=== PATIENT | female | born 1975 | race Caucasian/White ===

== ENCOUNTER 2016-11-03 17:39 | Emergency (ER) | payer MEDICAID ==
[~2016-11-03] VITALS: Ht 160 cm; Wt 65.5 kg
[~2016-11-03 17:39] MED LIST: HYDR-906 PO; NAPR-260 PO
[2016-11-03 19:35] VITALS: Ht 160 cm; Wt 65.5 kg
[2016-11-03 21:47] LABS: URINE BLOOD (Dip) POC 1+ (NEGATIVE)
--- NOTE | 2016-11-03 21:51 | RADRPT ---
PROCEDURE: Pelvic ultrasound. CLINICAL INDICATION: Pelvic pain TECHNIQUE: Sullivan scale, color doppler, spectral doppler ultrasound of the pelvis was performed with transabdominal and transvaginal transducers. COMPARISON: Pelvic ultrasound 10/29/1959 FINDINGS: Uterus: Position: Anteverted. Small intramural fibroids are again identified in the fundal region dorsal aspect of the uterine bod y measuring up to 1.0 cm. These do not appear submucosal on the current examination. Normal appearance of the endometrium. Proliferative phase. Nabothian cysts are observed. Ovaries: Normal sized ovaries with preserved blood flow. No adnexal masses. Free fluid: None. Measurements: Endometrium: 0.6 cm Uterus: 9.6 x 6.1 x 4.9 cm Right ovary: 3.0 x 2.3 x 1.8 cm Left ovary: 2.4 x 1.5 x 1.9 cm IMPRESSION: Unchanged appearance of small uterine fibroids. Normal appearance the endometrium. RPTAT: AADD .Ventura Mancia MD, MD Date Time Electronically viewed and signed by .Ventura Mancia MD, on 11/03/2016 21:51 .B/
[2016-11-03] MEDS ORDERED: IBUP-1542 PO (22:05)
--- NOTE | 2016-11-03 22:10 | ERD ---
ER Documentation Chief Complaint Date/Time DATE: 11/03/16 TIME: 22:07 Chief Complaint pelvic pain x 1 month HPI Patient is a 41-year-old Lao-speaking female who presents to the ED with left-sided pelvic pain for 2 months. She states that she had vaginal bleeding on and off for the last month and a half. Her last normal menstrual period was 09/11/17. She states that she stopped bleeding 4 days ago but complains of pelvic pain. She was seen here 1 month ago for similar symptoms and was diagnosed with fibroids. She states that she did not go see a specialist for this reason and states "I didn't want to go" and is here for repeat ultrasound. Denies sexual activity. Denies abnormal vaginal discharge. Denies urinary symptoms. Denies fever or chills. Denies abdominal pain, nausea, vomiting or diarrhea. Denies chest pain, cough, shortness of breath or difficulty breathing. Denies headache or dizziness denies leg pain or swelling. No other symptoms. ROS All systems reviewed and are negative except as per history of present illness. Medications Home Meds Active Scripts Ibuprofen* (Motrin*) 600 Mg Tab, 600 MG PO Q6, #30 TAB Prov:TI AMARO PA-C 11/03/16 Naproxen* (Naprosyn*) 500 Mg Tablet, 500 MG PO BID Y for PAIN AND/OR INFLAMMATION, #30 TAB Prov:FRENCH PFEIFFER PA-C 09/28/16 Hydrocodone/Acetaminophen ([place] 5-325 Tablet) 1 Each Tablet, 1 TAB PO Q6H Y for PAIN, #10 TAB Prov:FRENCH PFEIFFER PA-C 09/28/16 Allergies Allergies: Coded Allergies: No Known Allergy (Unverified , 11/03/16) PMhx/Soc History of Surgery: Yes (Tubal Ligation.) Anesthesia Reaction: No Hx Neurological Disorder: No Hx Respiratory Disorders: No Hx Cardiac Disorders: No Hx Psychiatric Problems: No Hx Miscellaneous Medical Probl: Yes (uterine fibroids, ovarian cyst) Hx Alcohol Use: No Hx Substance Use: No Hx Tobacco Use: No Smoking Status: Never smoker FmHx Family History: No coronary disease, No diabetes, No other Physical Exam Vitals Vital Signs Date Time Temp Pulse Resp B/P Pulse Ox O2 Delivery O2 Flow Rate FiO2 11/03/16 19:35 97.8 88 20 134/77 100 Physical Exam GENERAL: Well-developed, well-nourished female. Appears in no acute distress. ABDOMEN: No scars, ecchymosis or rashes noted. Soft, nontender, and nondistended. Positive bowel sounds in all four quadrants. No rebound tenderness , no guarding. (-) McBurneys point tenderness. No CVA tenderness. BACK: No midline tenderness. : tenderness in right pelvic region. no CMT. no bleeding. Extremities: Equal pulses bilaterally. No peripheral clubbing, cyanosis or edema. No unilateral leg swelling. NEUROLOGIC: Alert and oriented. Moving all four extremities. 5/5 strength in all extremities. Normal speech. Steady gait. SKIN: Normal color. Warm and dry. No rashes or lesions. Capillary refill < 2 seconds Result Diagram: 11/03/162151 Results 24 hrs Laboratory Tests Test 11/03/16 21:48 11/03/16 21:52 Bedside Urine Blood 1+ Bedside Urine Glucose (UA) Negative Bedside Urine Ketones (LAB) Negative Bedside Urine Leukocyte Esterase (L Negative Bedside Urine Nitrite (LAB) Negative Bedside Urine Protein (LAB) Negative Bedside Urine pH (LAB) 5.5 Basophils # 0.110^3/ul Basophils % 0.5% Eosinophils # 0.110^3/ul Eosinophils % 0.9% Hematocrit 36.4% Hemoglobin 12.3g/dl Lymphocytes # 4.110^3/ul Lymphocytes % 34.8% Mean Corpuscular Hemoglobin 29.1pg Mean Corpuscular Hemoglobin Concent 33.7g/dl Mean Corpuscular Volume 86.6fl Mean Platelet Volume 8.8fl Monocytes # 0.710^3/ul Monocytes % 5.7% Neutrophils # 6.810^3/ul Neutrophils % 58.1% Nucleated Red Blood Cells # 0.010^3/ul Nucleated Red Blood Cells % 0.0/100WBC Platelet Count 22351^3/UL Red Blood Count 4.2010^6/ul Red Cell Distribution Width 13.4% White Blood Count 11.710^3/ul Procedures/MDM ER COURSE: I kept the patient and/or family informed of laboratory and diagnostic imaging results throughout the emergency room course. EKG, MONITORS, & DIAGNOSTIC IMAGING: [place] [id number] Radiology Main Line: [phone] DIAGNOSTIC IMAGING REPORT Patient: SERA RODRIGUEZ : 1975 Age: 41 Sex: F MR #: [id number] DOS: 11/03/162054 Ordering MD: TI AMARO PA-C [facility] Room/Bed: PROCEDURE: Pelvic ultrasound. CLINICAL INDICATION: Pelvic pain TECHNIQUE: Sullivan scale, color doppler, spectral doppler ultrasound of the pelvis was performed with transabdominal and transvaginal transducers. COMPARISON: Pelvic ultrasound 10/29/1959 FINDINGS: Uterus: Position: Anteverted. Small intramural fibroids are again identified in the fundal region dorsal aspect of the uterine body measuring up to 1.0 cm. These do not appear submucosal on the current examination. Normal appearance of the endometrium. Proliferative phase. Nabothian cysts are observed. Ovaries: Normal sized ovaries with preserved blood flow. No adnexal masses. Free fluid: None. Measurements: Endometrium: 0.6 cm Uterus: 9.6 x 6.1 x 4.9 cm Right ovary: 3.0 x 2.3 x 1.8 cm Left ovary: 2.4 x 1.5 x 1.9 cm IMPRESSION: Unchanged appearance of small uterine fibroids. Normal appearance the endometrium. RPTAT: AADD .Ventura Mancia MD, Date Time Electronically viewed and signed by .Ventura Mancia MD, MD on 11/03/2016 21:51 .B/ CC: TI AMARO PA-C PROCEDURES: Pelvic Exam LAB INTERPRETATION: CBC showed no evidence of systemic infection or severe anemia. UA showed no evidence of leukocytes, nitrites or hematuria. Urine test was negative. MEDICAL DECISION MAKING: This is a 41-year-old female who presents with pelvic pain. Vital signs were reviewed. Patient is afebrile. Patient is not hypoxic. Patient is not toxic or ill-appearing. Patient has fibroids. Low suspicion for ovarian torsion, PID, tuboovarian abscess, ectopic , bowel obstruction, pyelonephritis, UTI, appendicitis, cervicitis, septic , anemia. Low suspicion for ACS, AAA , perforated ulcer, bowel obstruction, cholecystitis, choledocholithiasis, cholangitis, pancreatitis, hepatic abscess, appendicitis, diverticulitis, gastroenteritis, hepatitis, peptic ulcer disease, HELLP syndrome. DISCHARGE: At this time, patient is stable for discharge and outpatient management with no new complaints during the ER course. [facility] in the area that patient should follow-up with.. Patient will be discharged home with instructions to recheck for new or worsening symptoms such as fever, nausea, weakness, LOC and to follow up with primary care in the next 1-2 days. Patient was advised to return to the ER for any new or worsening symptoms. Plan was discussed and patient and/or family understands and agrees. Home instructions were given. Departure Diagnosis: Primary Impression: Pelvic pain Condition: Stable Patient Instructions: What Are Fibroids? Referrals: STEPHY NEVILLE MARIE H MD DELSHAD, GEORGE M MD Additional Instructions: Llame al doctor ANTONIO y naida raven MICHAEL PARA DENTRO DE 1-2 GAINES.Dgale a la secretaria que nosotros le instruimos hacer esta michael.Avise o llame si rodriguez condicin se empeora antes de la michael. Regresa aqui si peor o no mejor. Necesita ir a la specialista de gynecologia. TI AMARO PA-C Nov 03, 2016 22:10
[2016-11-03 22:21] LABS: BASOPHIL # 0.1 10^3/ul (0.0-0.1); BASOPHILS % 0.5 % (0.0-2.0); EOSINOPHILS # 0.1 10^3/ul (0.0-0.5); EOSINOPHILS % 0.9 % (0.0-7.0); HEMATOCRIT 36.4 % (37.0-47.0); HEMOGLOBIN 12.3 g/dl (12.0-16.0); LYMPHOCYTES # 4.1 10^3/ul (0.8-2.9); LYMPHOCYTES % 34.8 % (15.0-51.0); MEAN CORPUSCULAR HEMOGLOBIN 29.1 pg (29.0-33.0); MEAN CORPUSCULAR HGB CONC 33.7 g/dl (32.0-37.0); MEAN CORPUSCULAR VOLUME 86.6 fl (82.0-101.0); MEAN PLATELET VOLUME 8.8 fl (7.4-10.4); MONOCYTE # 0.7 10^3/ul (0.3-0.9); MONOCYTES % 5.7 % (0.0-11.0); NEUTROPHIL # 6.8 10^3/ul (1.6-7.5); NEUTROPHILS % 58.1 % (39.0-77.0); PLATELET COUNT 294 10^3/UL (140-440); RED CELL DISTRIBUTION WIDTH 13.4 % (11.5-14.5); UNCORRECTED WBC 11.7 10^3/ul (4.8-10.8); WHITE BLOOD COUNT 11.7 10^3/ul (4.8-10.8)
[2016-11-03 22:22] LABS: CONDITION 1
[2016-11-03 23:41] VITALS: BP 135/84; PULSE 88; RESP 16; TEMP 98.7
== END 2016-11-03 23:42 | disposition home or self-care (01) ==
LOC: FTE 17:39
DX: R10.2 Pelvic and perineal pain (principal)
CPT/HCPCS: 36415; 76830; 76856; 81003; 85025; Z7502

== ENCOUNTER 2018-07-05 13:00 | Emergency (ER) | END 2018-07-05 15:00 | disposition home or self-care (01) ==

== ENCOUNTER 2018-11-22 11:16 | Emergency (ER) | payer MEDICAID ==
[~2018-11-22] VITALS: Ht 157.5 cm; Wt 65.3 kg
[~2018-11-22 11:16] MED LIST changes: +CEFU500T45 PO; +HYDR-4011 PO; -HYDR-906 PO; +IBUP-1542 PO; -NAPR-260 PO; +NAPR-985 PO
[2018-11-22 11:19] VITALS: Ht 157.5 cm; Wt 65.3 kg
--- NOTE | 2018-11-22 13:01 | ERD ---
ER Documentation Chief Complaint Chief Complaint headache/sore throat/eye pain/pelvic pain [id number] HPI 43-year-old female, presents the emergency department, complaining of 2 weeks with a variety of symptoms including facial pain, headache, sore throat, runny nose and pelvic pain. Otherwise no fever, no chills, no rashes, no diarrhea or constipation. The patient has not established primary care and she also denies taking any medications for the symptoms. ROS All systems reviewed and are negative except as per history of present illness. Medications Home Meds Active Scripts Hydroxyzine Hcl* (Hydroxyzine Hcl*) 25 Mg Tablet, 25 MG PO QHS PRN for INSOMNIA, #15 TAB Prov:HORTENSIA DONNELLY MD 11/22/18 Zdpnffcliz-Fgecbrmnjlsmb-Xedrreqg* (Fioricet*) 50-300-40 Mg Capsule, 1 CAP PO TID PRN for HEADACHE, #12 CAP Prov:HORTENSIA DONNELLY MD 11/22/18 Amoxicillin* (Amoxicillin*) 500 Mg Cap, 500 MG PO TID for 7 Days, CAP Prov:HORTENSIA DONNELLY MD 11/22/18 Ibuprofen* (Motrin*) 600 Mg Tab, 600 MG PO Q6, #15 TAB Prov:BHARATHI VICTOR MD 07/05/18 Cefuroxime Axetil* (Cefuroxime Axetil*) 500 Mg Tablet, 500 MG PO BID, #20 TAB Prov:BHARATHI VICTOR MD 07/05/18 Ibuprofen* (Motrin*) 600 Mg Tab, 600 MG PO Q6, #30 TAB Prov:TI AMARO PA-C 11/03/16 Naproxen* (Naprosyn*) 500 Mg Tablet, 500 MG PO BID PRN for PAIN AND/OR INFLAMMATION, #30 TAB Prov:FRENCH PFEIFFER PA-C 09/28/16 Hydrocodone/Acetaminophen ([place] 5-325 Tablet) 1 Each Tablet, 1 TAB PO Q6H PRN for PAIN, #10 TAB Prov:FRENCH PFEIFFER PA-C 09/28/16 Allergies Allergies: Coded Allergies: No Known Allergy (Unverified , 11/03/16) PMhx/Soc History of Surgery: Yes (Tubal Ligation.) Anesthesia Reaction: No Hx Neurological Disorder: No Hx Respiratory Disorders: No Hx Cardiac Disorders: No Hx Psychiatric Problems: No Hx Miscellaneous Medical Probl: Yes (uterine fibroids, ovarian cyst) Hx Alcohol Use: No Hx Substance Use: No Hx Tobacco Use: No Smoking Status: Never smoker FmHx Family History: coronary disease; No diabetes Physical Exam Vitals Vital Signs Date Temp Pulse Resp B/P (MAP) Pulse Ox O2 O2 Flow FiO2 Time Delivery Rate 11/22/18 76 18 134/81 100 Room Air 14:56 (98) 11/22/18 97.9 64 20 167/78 97 11:19 (107) Physical Exam Const: No acute distress Head: Right facial tenderness Eyes: Normal Conjunctiva ENT: N erythematous oropharynx ormal External Ears. Neck: Full range of motion. No meningismus. Resp: Clear to auscultation bilaterally Cardio: Regular rate and rhythm, no murmurs Abd: Soft, non tender, non distended. Normal bowel sounds Skin: No petechiae or rashes Back: No midline or flank tenderness Ext: No cyanosis, or edema Neur: Awake and alert Psych: Normal Mood and Affect Results 24 hrs Laboratory Tests Test 11/22/18 13:26 11/22/18 13:28 Bedside Urine pH (LAB) 6.0 Bedside Urine Protein (LAB) Negative Bedside Urine Glucose (UA) Negative Bedside Urine Ketones (LAB) Negative Bedside Urine Blood 2+ Bedside Urine Nitrite (LAB) Negative Bedside Urine Leukocyte Esterase (L Negative POC Beta HCG, Qualitative NEGATIVE Procedures/MDM Vital signs stable, differential diagnosis include but not limited to: Upper versus lower respiratory infection, bacterial/viral/fungal etiology. Asthma, pneumonitis, allergies, less likely meningitis. Low suspicion for acute systemic infection. Physical examination and clinical presentation consistent most likely with sinusitis. During the ED course the patient remained stable, no new complaints. Treatment options and clinical impression discussed with the patient who agrees with management. The patient is stable to be treated outpatient and will be discharged home with a Rx for antibiotics and anti-inflammatories. some side effects of prescribed medications (headache, rash, nausea, vomiting, diarrhea, hypertension, interactions with other medications) were reviewed. The patient was instructed to follow up with the primary care provider in the next 48h. If symptoms persist, worsen or new symptoms develop, then patient should return to the ED immediately. Disclaimer: Inadvertent spelling and grammatical errors are likely due to EHR/dictation software use and do not reflect on the overall quality of patient care. Also, please note that the electronic time recorded on this note does not necessarily reflect the actual time of the patient encounter. Departure Diagnosis: Primary Impression: Sinusitis Condition: Stable Additional Instructions: Muchas london por [facility] para rodriguez servicio. Esperamos que en rodriguez visita a la wolf de emergencia rodriguez problema medico haya sido solucionado y que se sienta mucho mejor. Para estar seguros que rodriguez mejoria sigue en proceso, le pedimos el favor de hacer raven wilfredo de seguimiento medico con rodriguez doctor primario en los proximos 2-4 gabriel. Lleve con usted estos documentos y las medicinas recetadas. Si abelardo sintomas empeoran, NO SE ESPERE, por favor regrese a wolf de emergencia INMEDIATAMENTE. En seven que usted no tenga un mdico de atencin primaria: Llame al mdico o clnica comunitaria de referencia que aparece abajo vasyl las horas de consultorio para hacer raven wilfredo para que le vean. CLINICAS: [facility] [phone] [facility] [phone] [facility] [phone] [facility] [phone] [facility] [phone] [address] [facility] [phone] MD Nov 22, 2018 13:01
[2018-11-22] MEDS ORDERED: AMOX500C2 PO (14:43)
[2018-11-22] MEDS ORDERED: BUTA1CAP38 PO (14:43)
[2018-11-22] MEDS ORDERED: HYDR-843 PO (14:43)
[2018-11-22 14:56] VITALS: BP 134/81; PULSE 76; RESP 18
== END 2018-11-22 14:57 | disposition home or self-care (01) ==
LOC: FTE 11:16
DX: J32.9 Chronic sinusitis, unspecified (principal)
CPT/HCPCS: 70220; 81003; 81025

== ENCOUNTER 2019-06-18 09:03 | Emergency (ER) | payer MEDICAID ==
[~2019-06-18] VITALS: Ht 157.5 cm; Wt 80.0 kg
[~2019-06-18 09:03] MED LIST changes: +AMOX500C2 PO; +BUTA1CAP38 PO; +CEPH-443 PO; +HYDR-843 PO
[2019-06-18 09:08] VITALS: Ht 157.5 cm; Wt 80.0 kg
[2019-06-18] MEDS ORDERED: KETOROLAC 15 MG INJ IV STA (10:24)
[2019-06-18] MEDS ORDERED: SOD CHLORIDE 0.9% 1,000 ML IV ONE (10:30)
[2019-06-18] MEDS ORDERED: CEFTRIAXONE 1 GM/50 ML (PMX) 50 ML IVPB ONE (10:30)
[2019-06-18 12:06] VITALS: BP 124/82; PULSE 65; RESP 16
== END 2019-06-18 12:27 | disposition home or self-care (01) ==
LOC: E/R 09:03
DX: N30.00 Acute cystitis without hematuria (principal); R40.2142 Coma scale, eyes open, spontaneous, at arrival to emergency department; R40.2362 Coma scale, best motor response, obeys commands, at arrival to emergency department; R40.2252 Coma scale, best verbal response, oriented, at arrival to emergency department
CPT/HCPCS: 80048; 81001; 81025; 85025; 96374; 96375; J0696; J1885; J7030; Z7502; 81003